=== PATIENT | female | born 1995 | race Caucasian/White ===

== ENCOUNTER 2017-08-16 21:41 | Emergency (ER) | payer SELFPAY ==
[2017-08-17 01:03] LABS: APPEARANCE,URINE SLIGHTLY-CLOUDY; BILIRUBIN,URINE NEGATIVE (NEGATIVE); GLUCOSE, URINE NEGATIVE (NEGATIVE); KETONES,URINE NEGATIVE (NEGATIVE); LEUKOCYTE ESTERASE,URINE TRACE (NEGATIVE); NITRITE,URINE POSITIVE (NEGATIVE); PROTEIN,URINE NEGATIVE (NEGATIVE); URINE SPECIFIC GRAVITY 1.017
--- NOTE | 2017-08-17 01:22 | ER Document Report ---
ED General - General Chief Complaint: Vaginal Bleeding Stated Complaint: VAGINAL BLEEDING Time Seen by Provider: 08/16/17 23:00 Notes: Patient is a 22-year-old female with a past medical history who presents with lower abdominal cramping and vaginal bleeding that has been present for the past 12 hours. Patient states she was concerned that she could be having a miscarriage although she has not actually had a positive test at home. States that she was concerned regarding this issue as she normally does not receive a menstrual cycle on her Depo-Provera. She has not missed any doses of the Depo-Provera. Does note the abdominal cramping is an intermittent , mild, cramping pain to the lower abdomen that feels like a typical menstrual cramps. She has not bled through more than 2 pads at any time. She has not seen a primary care doctor [employer] regarding today's concerns. She denies any active bleeding at this time. TRAVEL OUTSIDE OF THE [place] IN LAST 30 DAYS: No - Related Data Allergies/Adverse Reactions: No Known Allergies Allergy (Verified 08/18/13 19:13) Past Medical History - General Information source: Patient - Social History Smoking Status: Never Smoker Frequency of alcohol use: None Drug Abuse: None Lives with: Family Family History: Reviewed & Not Pertinent Renal/ Medical History: Denies: Hx Peritoneal Dialysis - Immunizations Immunizations up to date: Yes Hx Diphtheria, Pertussis, Tetanus Vaccination: Yes Review of Systems - Review of Systems Notes: Constitutional: Negative for fever. HENT: Negative for sore throat. Eyes: Negative for visual changes. Cardiovascular: Negative for chest pain. Respiratory: Negative for shortness of breath. Gastrointestinal: Positive for abdominal cramping Genitourinary: Positive for vaginal bleeding Musculoskeletal: Negative for back pain. Skin: Negative for rash. Neurological: Negative for headaches, weakness or numbness. 10 point ROS negative except as marked above and in HPI. Physical Exam - Vital signs Vitals: Temp Pulse Resp BP Pulse Ox 98.3 F 91 18 139/93 H 99 08/16/17 22:09 08/16/17 22:09 08/16/17 22:09 08/16/17 22:09 08/16/17 22:09 Interpretation: Normal Notes: PHYSICAL EXAMINATION: GENERAL: Well-appearing, well-nourished and in no acute distress. HEAD: Atraumatic, normocephalic. EYES: Pupils equal round and reactive to light, extraocular movements intact, sclera anicteric, conjunctiva are normal. ENT: nares patent, oropharynx clear without exudates. Moist mucous membranes. NECK: Normal range of motion, supple without lymphadenopathy LUNGS: Breath sounds clear to auscultation bilaterally and equal. No wheezes rales or rhonchi. HEART: Regular rate and rhythm without murmurs ABDOMEN: Soft, nontender, normoactive bowel sounds. No guarding, no rebound. No masses appreciated. EXTREMITIES: Normal range of motion, no pitting or edema. No cyanosis. NEUROLOGICAL: No focal neurological deficits. Moves all extremities spontaneously and on command. PSYCH: Normal mood, normal affect. SKIN: Warm, Dry, normal turgor, no rashes or lesions noted. Course - Re-evaluation Re-evalutation: 08/17/17 01:19 Patient presents with vaginal bleeding and cramping most consistent with a menstrual cycle. Her concern was that she may be having a miscarriage and she does not normally get a menstrual cycle while taking Depo-Provera. Her test however is negative. She has no focal abdominal tenderness on examination. No rebound or guarding. Her clinical history is not consistent with an acute appendicitis, ovarian torsion, tubo-ovarian abscess, acute biliary pathology or nephrolithiasis. Her urinalysis does not show any evidence of an acute infection. Patient was relieved to hear that she was not and states that that was the main concern that she came to the emergency department to address. At this time will discharge with return precautions and follow-up recommendations. Verbal discharge instructions given a the bedside and opportunity for questions given. Medication warnings reviewed. Patient is in agreement with this plan and has verbalized understanding of return precautions and the need for primary care follow-up in the next 24-72 hours. - Vital Signs Vital signs: Temp Pulse Resp BP Pulse Ox 98.3 F 91 18 139/93 H 99 08/16/17 22:09 08/16/17 22:09 08/16/17 22:09 08/16/17 22:09 08/16/17 22:09 - Laboratory Laboratory results interpreted by me: 08/17/17 00:50 Urine Blood SMALL H Urine Nitrite POSITIVE H Urine Urobilinogen 2.0 H Ur Leukocyte Esterase TRACE H Discharge - Discharge Clinical Impression: Vaginal bleeding, Abdominal cramping Condition: Good Disposition: HOME, SELF-CARE Additional Instructions: Return immediately if you worsening pain, you began bleeding through more than 2 pads per hour for more than 3 hours, you pass out, have persistent vomiting, develop a fever greater than 100.4F, or any other symptoms that are concerning to you.
[2017-08-17 01:55] VITALS: BP 134/87
== END 2017-08-17 01:55 | disposition home or self-care (01) ==
LOC: ER 21:41
DX: N93.8 Other specified abnormal uterine and vaginal bleeding (principal); R10.9 Unspecified abdominal pain
CPT/HCPCS: 81001; 81025; 99284

== ENCOUNTER 2018-02-06 04:41 | Emergency (ER) | payer MEDICAID, OTHER ==
[2018-02-06 04:54] VITALS: BP 137/76
[2018-02-06 05:53] LABS: APPEARANCE,URINE SLIGHTLY-CLOUDY; BILIRUBIN,URINE NEGATIVE (NEGATIVE); COLOR,URINE YELLOW; GLUCOSE, URINE NEGATIVE (NEGATIVE); KETONES,URINE NEGATIVE (NEGATIVE); LEUKOCYTE ESTERASE,URINE NEGATIVE (NEGATIVE); NITRITE,URINE POSITIVE (NEGATIVE); PROTEIN,URINE NEGATIVE (NEGATIVE); URINE SPECIFIC GRAVITY 1.018
--- NOTE | 2018-02-06 05:53 | ER Document Report ---
ED Medical Screen (RME) - General Chief Complaint: Vaginal Bleeding Stated Complaint: VAGINAL BLEEDING Time Seen by Provider: 02/06/18 05:43 TRAVEL OUTSIDE OF THE [place] IN LAST 30 DAYS: No - HPI Notes: 02/06/18 05:50 Patient is a 22-year-old female no significant past medical history presents to the ED complaining of having vaginal bleeding during intercourse this past evening. Patient states that she did not have any bleeding beforehand, but had bleeding during. Patient states that the bleeding stopped thereafter. Patient states that she has had lower pelvic pain as well over the last day. Patient states that she was on Depo, but finished that of June in 2016. She denies any . States that her menstrual period is usually regular, but missed her latest period in mid december. She is otherwise been eating and drinking without difficulties. She is urinating normally and having normal bowel movements. No other concerns at this time. Denies any headache, fever, URI, sore throat, chest pain, palpitations, syncope, cough, shortness of breath , wheeze, dyspnea, nausea/vomiting/diarrhea, urinary retention, dysuria, hematuria, back pain, loss of control of bowel or bladder, numbness/tingling, saddle anesthesia, muscle paralysis/weakness, or rash. I have treated and performed a rapid initial assessment of this patient. A comprehensive ED assessment and evaluation of the patient, analysis of test results and completion of medical decision making process will be conducted by additional ED providers. PHYSICAL EXAMINATION: GENERAL: Well-appearing, well-nourished and in no acute distress. A&Ox4. Answers questions appropriately. LUNGS: Breath sounds clear to auscultation bilaterally and equal. No wheezes rales or rhonchi. HEART: Regular rate and rhythm without murmurs, rubs, gallops. ABDOMEN: Soft, nondistended abdomen. No guarding, no rebound. No masses appreciated. Normal bowel sounds present. No CVA tenderness bilaterally. + tenderness lower abdomen to palp. - Related Data Allergies/Adverse Reactions: No Known Allergies Allergy (Verified 02/06/18 04:46) Past Medical History Renal/ Medical History: Denies: Hx Peritoneal Dialysis - Immunizations Immunizations up to date: Yes Hx Diphtheria, Pertussis, Tetanus Vaccination: Yes Physical Exam - Vital signs Vitals: Temp Pulse Resp BP Pulse Ox 97.9 F 100 20 137/76 H 98 02/06/18 04:48 02/06/18 04:48 02/06/18 04:48 02/06/18 04:48 02/06/18 04:48 Course - Vital Signs Vital signs: Temp Pulse Resp BP Pulse Ox 97.9 F 100 20 137/76 H 98 02/06/18 04:48 02/06/18 04:48 02/06/18 04:48 02/06/18 04:48 02/06/18 04:48
--- NOTE | 2018-02-06 06:54 | RADIOLOGY REPORT (SQ) ---
EXAM DESCRIPTION: U/S NON OB PEL TV W/DOPPLER CLINICAL HISTORY: 22 years, Female, pelvic pain COMPARISON: None. TECHNIQUE: Transvaginal. LIMITATIONS: None. FINDINGS: 4.9 x 3.3 x 2.9 cm right ovary contains a multilocular 3.2 x 2.7 x 2.5 cm cystic mass. Right ovarian vascularity is within normal limits. 6.8 x 4.3 x 3.0 cm uterus, 0.8 cm thick endometrial stripe with minimal fluid, and 3.2 cm left ovary appear of normal size, shape, echotexture, and vascularity. No significant free fluid. IMPRESSION: Probably benign multilocular 3.2 cm right ovarian cystic mass; differential diagnosis includes benign neoplasm. [employer] surgical consultation recommended.
--- NOTE | 2018-02-06 07:10 | ER Document Report ---
ED General - General Chief Complaint: Vaginal Bleeding Stated Complaint: VAGINAL BLEEDING Time Seen by Provider: 02/06/18 05:43 Mode of Arrival: Ambulatory Information source: Patient Notes: 22-year-old female who is recently off the Depoe shot who has irregular menses presents with complaints of vaginal bleeding. Patient notes she was not having any bleeding initially had intercourse during intercourse had some bleeding and then since then has not had any bleeding. Patient refuses pelvic examination Patient does note intermittent cramping, notes with her regular menses she is unsure when her current menses should start. She denies any vaginal bleeding discharge, she denies any concerns for sexually transmitted diseases TRAVEL OUTSIDE OF THE [place] IN LAST 30 DAYS: No - HPI Onset: Just prior to arrival Onset/Duration: Sudden Quality of pain: Cramping Severity: Mild Pain Level: 1 Associated symptoms: Other Exacerbated by: Denies Relieved by: Denies Similar symptoms previously: No Recently seen / treated by doctor: No - Related Data Allergies/Adverse Reactions: No Known Allergies Allergy (Verified 02/06/18 04:46) Past Medical History - Social History Smoking Status: Current Every Day Smoker Cigarette use (# per day): Yes Chew tobacco use (# tins/day): No Smoking Education Provided: No Frequency of alcohol use: None Drug Abuse: None Family History: Reviewed & Not Pertinent Patient has suicidal ideation: No Patient has homicidal ideation: No Renal/ Medical History: Denies: Hx Peritoneal Dialysis - Immunizations Immunizations up to date: Yes Hx Diphtheria, Pertussis, Tetanus Vaccination: Yes Review of Systems - Review of Systems Notes: REVIEW OF SYSTEMS: CONSTITUTIONAL : Denies fever, chills, or sweats. Denies recent illness. EENT: Denies eye, ear, throat, or mouth pain or symptoms. Denies nasal or sinus congestion or discharge. Denies throat, tongue, or mouth swelling or difficulty swallowing. CARDIOVASCULAR: Denies chest pain. Denies palpitations or racing or irregular heart beat. Denies ankle edema. RESPIRATORY: Denies cough, cold, or chest congestion. Denies shortness of breath, difficulty breathing, or wheezing. GASTROINTESTINAL: Denies abdominal pain or distention. Denies nausea, vomiting , or diarrhea. Denies blood in vomitus, stools, or per rectum. Denies black, tarry stools. Denies constipation. GENITOURINARY: Denies difficulty urinating, painful urination, burning, frequency, blood in urine, or discharge. FEMALE GENITOURINARY: Admits to vaginal bleeding MUSCULOSKELETAL: Denies back or neck pain or stiffness. Denies joint pain or swelling. SKIN: Denies rash, lesions or sores. HEMATOLOGIC : Denies easy bruising or bleeding. LYMPHATIC: Denies swollen, enlarged glands. NEUROLOGICAL: Denies confusion or altered mental status. Denies passing out or loss of consciousness. Denies dizziness or lightheadedness. Denies headache. Denies weakness or paralysis or loss of use of either side. Denies problems with gait or speech. Denies sensory loss, numbness, or tingling. Denies seizures. PSYCHIATRIC: Denies anxiety or stress. Denies depression, suicidal ideation, or homicidal ideation. ALL OTHER SYSTEMS REVIEWED AND NEGATIVE. PHYSICAL EXAMINATION: GENERAL: Well-appearing, well-nourished and in no acute distress. HEAD: Atraumatic, normocephalic. EYES: Pupils equal round and reactive to light, extraocular movements intact, conjunctiva are normal. ENT: Nares patent, oropharynx clear without exudates. Moist mucous membranes. NECK: Normal range of motion, supple without lymphadenopathy LUNGS: Breath sounds clear to auscultation bilaterally and equal. No wheezes rales or rhonchi. HEART: Regular rate and rhythm without murmurs ABDOMEN: Soft, nontender, nondistended abdomen. No guarding, no rebound. No masses appreciated. Female : deferred Musculoskeletal: Normal range of motion, no pitting or edema. No cyanosis. NEUROLOGICAL: Cranial nerves grossly intact. Normal speech, normal gait. Normal sensory, motor exams PSYCH: Normal mood, normal affect. SKIN: Warm, Dry, normal turgor, no rashes or lesions noted. Dictation was performed using [employer] voice recognition software Physical Exam - Vital signs Vitals: Temp Pulse Resp BP Pulse Ox 97.9 F 100 20 137/76 H 98 02/06/18 04:48 02/06/18 04:48 02/06/18 04:48 02/06/18 04:48 02/06/18 04:48 Course - Re-evaluation Re-evalutation: 02/06/18 07:15 Cystic mass was noted, is probably benign in nature however I did speak with Dr. Cordova who will have women's health contact her for follow-up appointment 02/06/18 07:31 Patient was made aware of findings, she still refuses pelvic examination, she overall looks well, I have very low suspicion for any life-threatening issues, her urinalysis did have positive nitrites After performing a Medical Screening Examination, I estimate there is LOW risk for ACUTE APPENDICITIS, BOWEL OBSTRUCTION, ACUTE CHOLECYSTITIS, PERFORATED DIVERTICULITIS, INCARCERATED HERNIA, PANCREATITIS, PELVIC INFLAMMATORY DISEASE, PERFORATED ULCER, ECTOPIC , or TUBO-OVARIAN ABSCESS, thus I consider the discharge disposition reasonable. Also, there is no evidence or peritonitis , sepsis, or toxicity. I have reevaluated this patient multiple times and no significant life threatening changes are noted. The patient and I have discussed the diagnosis and risks, and we agree with discharging home with close follow-up with the understanding that symptoms and presentations can change. We also discussed returning to the Emergency Department immediately if new or worsening symptoms occur. We have discussed the symptoms which are most concerning (e.g., bloody stool, fever, changing or worsening pain, vomiting) that necessitate immediate return. - Vital Signs Vital signs: Temp Pulse Resp BP Pulse Ox 97.9 F 100 20 137/76 H 98 02/06/18 04:48 02/06/18 04:48 02/06/18 04:48 02/06/18 04:48 02/06/18 04:48 - Laboratory Laboratory results interpreted by me: 02/06/18 05:30 Urine Blood LARGE H Urine Nitrite POSITIVE H Urine Urobilinogen 2.0 H - Diagnostic Test Radiology reviewed: Image reviewed - Transvaginal ultrasound consistent with a cystic mass report given to patient, Reports reviewed Discharge - Discharge Clinical Impression: Vaginal bleeding Ovarian cyst Qualifiers: Laterality: right Qualified Code(s): N83.201 - Unspecified ovarian cyst, right side Condition: Stable Disposition: HOME, SELF-CARE Instructions: Ovarian Cyst ([facility]) Referrals: [facility] [Provider Group] - Follow up tomorrow
== END 2018-02-06 07:49 | disposition home or self-care (01) ==
LOC: ER 04:41
DX: N83.201 Unspecified ovarian cyst, right side (principal); N93.9 Abnormal uterine and vaginal bleeding, unspecified; F17.210 Nicotine dependence, cigarettes, uncomplicated
CPT/HCPCS: 76830; 81001; 81025; 93976; 99284